=== PATIENT | female | born 1970 | race African-American/Black ===

== ENCOUNTER 2024-07-03 06:41 | Observation (INO) | payer OTHER ==
[2024-07-03 06:49] VITALS: BMI 21.9
[2024-07-03 08:28] LABS: BASO % 0.7 % (0-2.0); HEMATOCRIT 37.6 % (32.4-45.2); HEMOGLOBIN 12.6 GM/dL (10.7-15.3); LYMPH % 31.9 % (8-40); MCH 31.9 pg (25.7-33.7); MCHC 33.5 g/dl (32.0-36.0); MEAN CELL VOLUME 95.2 fl (80-96); MEAN PLT VOLUME 9.5 fl (7.5-11.1); MONO % 7.1 % (3.8-10.2); NEUT % 50.3 % (42.8-82.8); PLATELET COUNT 221 10^3/uL (134-434); RBC 3.95 M/mm3 (3.60-5.2); WHITE BLOOD COUNT 3.8 K/mm3 (4.0-10.0)
[2024-07-03 08:36] LABS: INR 0.87 (0.83-1.09); PROTHROMBIN TIME (PATIENT) 10.1 SEC (9.7-13.0)
[2024-07-03 08:37] LABS: CHLORIDE 101 mmol/L (98-107); POTASSIUM 4.5 mmol/L (3.5-5.1); SODIUM 135 mmol/L (136-145)
[2024-07-03 08:39] LABS: ACTIVATED PTT 30.3 SECONDS (25.2-36.5); ALBUMIN 3.6 g/dl (3.4-5.0); ANION GAP 3 mmol/L (4-13); CALCIUM 9.6 mg/dL (8.5-10.1); CO2 32 mmol/L (21-32)
[2024-07-03 08:40] LABS: GLUCOSE,RANDOM 107 mg/dL (74-106)
[2024-07-03 08:41] LABS: BLOOD UREA NITROGEN 23.5 mg/dL (7-18)
[2024-07-03 08:43] LABS: SGOT/AST 61 U/L (15-37); SGPT/ALT 36 U/L (13-61)
[2024-07-03 08:44] LABS: TOT PROT 7.8 g/dl (6.4-8.2)
[2024-07-03 08:45] LABS: BILIRUBIN,TOTAL 0.6 mg/dL (0.2-1)
[2024-07-03 08:47] LABS: ALK PHOS 75 U/L (45-117)
[2024-07-03] MEDS ORDERED: ASPIRIN 81 MG CHEWABLE TABLETS ONE (15:43)
[2024-07-03] MEDS: ASPIRIN 81 MG CHEWABLE TABLETS PO ONE (15:48)
[2024-07-03] MEDS ORDERED: amLODIPine BESYLATE 5 MG TABLET (FP) PO SCH (16:00)
[2024-07-03] MEDS ORDERED: amLODIPine BESYLATE 5 MG TABLET (FP) ONE (18:40)
[2024-07-03] MEDS: amLODIPine BESYLATE 5 MG TABLET (FP) PO ONE (18:44)
[2024-07-03] MEDS: VALSARTAN 80 MG TABLET PO SCH (23:12)
[2024-07-03] MEDS: CHLORTHALIDONE 25 MG TABLET PO SCH (23:12)
[2024-07-04] MEDS: ACETAMINOPHEN 1000 MG/100 ML BAG IVPB ONE (01:20)
[2024-07-04 08:38] LABS: HEMATOCRIT 35.6 % (32.4-45.2); HEMOGLOBIN 12.3 GM/dL (10.7-15.3); MCH 32.3 pg (25.7-33.7); MCHC 34.5 g/dl (32.0-36.0); MEAN CELL VOLUME 93.7 fl (80-96); MEAN PLT VOLUME 8.9 fl (7.5-11.1); PLATELET COUNT 187 10^3/uL (134-434); RDW 13.3 % (11.6-15.6); WHITE BLOOD COUNT 3.2 K/mm3 (4.0-10.0)
[2024-07-04 08:56] LABS: POTASSIUM 3.4 mmol/L (3.5-5.1)
[2024-07-04 09:04] LABS: CALCIUM 9.9 mg/dL (8.5-10.1)
[2024-07-04 09:05] LABS: ALBUMIN 3.7 g/dl (3.4-5.0); BLOOD UREA NITROGEN 18.4 mg/dL (7-18)
[2024-07-04 09:08] LABS: CREATININE 0.7 mg/dL (0.55-1.3)
[2024-07-04 09:09] LABS: TOT PROT 7.5 g/dl (6.4-8.2)
[2024-07-04] MEDS: amLODIPine BESYLATE 10 MG TABLET (FP) PO SCH (09:50)
[2024-07-04] MEDS: ENOXAPARIN NA (PORCINE) 40 MG/0.4 ML DISP.SYRIN SQ SCH (09:50)
[2024-07-04] MEDS: POTASSIUM CHLORIDE ORAL LIQUID 20 MEQ/15 ML PO ONE (10:10)
[2024-07-04] MEDS: GABAPENTIN 100 MG CAPSULE PO SCH (10:10)
[2024-07-04] MEDS: ASPIRIN COATED 81 MG TABLET.EC PO SCH (10:10)
[2024-07-04] MEDS: DOCUSATE SODIUM 100 MG CAPSULE (FP) PO SCH (11:00)
[2024-07-04] MEDS ORDERED: LABETALOL HCL 200 MG TABLET (FP) PO SCH ×2 (11:00→22:00)
[2024-07-04 12:56] LABS: HIV INTERPRETATION NEGATIVE (NEGATIVE)
[2024-07-04 15:06] VITALS: RESP 18
[2024-07-04 18:45] VITALS: BP 142/89; PULSE 84; TEMP 98.8
[2024-07-04] MEDS ORDERED: ATORVASTATIN CA 40 MG TABLET (FP) PO SCH (22:00)
== END 2024-07-04 19:02 | disposition home or self-care (01) ==
LOC: JER 06:41 → INTOOBSV 14:19 → UNDOADMOB 14:19 → JERBED 14:19 → J4W 21:01 → JERBED 07-04 09:41
PROVIDERS: ADMIT Internal Medicine; ATTEND Internal Medicine
PROC: 3E033NZ Introduction of Analgesics, Hypnotics, Sedatives into Peripheral Vein, Percutaneous Approach (ICD-10-PCS; principal; 2024-07-04)
PROC: 3E023GC Introduction of Other Therapeutic Substance into Muscle, Percutaneous Approach (ICD-10-PCS; 2024-07-04)
DX: I16.0 Hypertensive urgency (principal); R79.89 Other specified abnormal findings of blood chemistry; E78.5 Hyperlipidemia, unspecified; I24.89 Other forms of acute ischemic heart disease; I10 Essential (primary) hypertension
CPT/HCPCS: 0241U-QW; 36415; 70450-TC; 70496-TC; 70498-TC; 71045-TC-FY; 80053; 80061; 82550; 82553; 82962; 83036; 84484; 85025; 85027; 85610; 85730; 86803; 86850; 86900; 86901; 87389; 93005; 93010; 93306-TC; 96372; 96374; 99291; G0378; J0131